=== PATIENT | male | born 1995 | race Caucasian/White ===

== ENCOUNTER 2021-04-01 17:35 | Emergency (ER) | payer OTHER ==
[2021-04-01 19:34] LABS: HEMOGLOBIN 14.3 gm/dl (14.0-17.5); RED BLOOD COUNT 5.14 M/UL (4.20-5.50); WHITE BLOOD COUNT 4.5 K/UL (4.5-11.0)
[2021-04-01 19:52] LABS: BUN/CREATININE RATIO 10 (0-10)
== END 2021-04-01 20:44 | disposition home or self-care (01) ==
LOC: ER1 17:35
PROVIDERS: Physician Assistant
DX: K62.5 Hemorrhage of anus and rectum (principal)
CPT/HCPCS: 80053; 85025; 85610; 85730; 86850; 86900; 86901; 99284; Q9967

== ENCOUNTER 2021-04-07 16:11 | Emergency (ER) | payer OTHER ==
[2021-04-07 18:21] LABS: HEMOGLOBIN 14.6 gm/dl (14.0-17.5); RED BLOOD COUNT 5.22 M/UL (4.20-5.50); WHITE BLOOD COUNT 6.5 K/UL (4.5-11.0)
[2021-04-07 18:40] LABS: BUN/CREATININE RATIO 8 (0-10)
== END 2021-04-07 20:26 | disposition home or self-care (01) ==
LOC: ER1 16:11
PROVIDERS: Physician Assistant Medical
DX: R79.9 Abnormal finding of blood chemistry, unspecified (principal); I10 Essential (primary) hypertension; Z91.040 Latex allergy status; F17.200 Nicotine dependence, unspecified, uncomplicated
CPT/HCPCS: 71045; 80053; 83605; 85025; 87040; 99283

== ENCOUNTER 2021-04-21 22:42 | Emergency (ER) | payer OTHER ==
[2021-04-21 23:37] LABS: HEMOGLOBIN 12.9 gm/dl (14.0-17.5); RED BLOOD COUNT 4.71 M/UL (4.20-5.50); WHITE BLOOD COUNT 3.4 K/UL (4.5-11.0)
[2021-04-21 23:53] LABS: BUN/CREATININE RATIO 8 (0-10)
== END 2021-04-22 18:15 ==
LOC: ER1 22:42
PROVIDERS: Student in an Organized Health Care Education/Training Program
DX: F32.9 Major depressive disorder, single episode, unspecified (principal); R45.851 Suicidal ideations; R10.9 Unspecified abdominal pain; Z20.822 Contact with and (suspected) exposure to COVID-19
CPT/HCPCS: 80053; 81001; 82272; 85025; 85610; 86850; 86900; 86901; 96374; 96375; 99285; C9113; J1630; J2270; J2405; Q9967; U0002